=== PATIENT | female | born 1980 | race Caucasian/White ===

== ENCOUNTER 2024-01-22 08:46 | Outpatient (CLI) | payer OTHER, SELFPAY ==
--- NOTE | 2024-01-22 09:06 | ECG_ITS ---
SEE SCANNED COPY FOR CONFIRMED REPORT MTDD
[2024-01-22 09:21] LABS: Hematocrit 39.4 % (37.0-47.0); Hemoglobin 13.2 g/dL (12.0-15.0)
== END 2024-01-22 08:47 | disposition home or self-care (01) ==
LOC: ANHSURGERY 08:57
PROVIDERS: Anesthesiology; Visit Provider Surgery Plastic and Reconstructive Surgery
DX: Z01.818 Encounter for other preprocedural examination (principal)
CPT/HCPCS: 36415; 85014; 85018; 93005

== ENCOUNTER 2024-01-23 00:32 | Day surgery (SDC) | payer OTHER, SELFPAY ==
[2024-01-14 11:41] VITALS: BMI 23.5
--- NOTE | 2024-01-14 11:47 | PC.NURSE ---
Report to the Outpatient Waiting Room, entrance under the green pavilion located off [facility], at time 6:00 on date 01/23/24. Planned Procedure Time: 7:30. Time changes happen often and if your time is changed the preop area will call you the afternoon before. - You and your visitor will be asked to self-screen and do not enter if you have any COVID symptoms. - A mask is optional within the hospital at this time. Patients may have clear liquids (water, carbonated beverages, clear teas, apple juice) until 3 hours prior to surgery (4:30) with a maximum of 20 ounces. - No food from midnight until time of surgery Take the following medications with a SIP of water the morning of surgery: NONE DO NOT STOP ANY OF YOUR OTHER PRESCRIPTION MEDICATIONS PRIOR TO SURGERY ?EXCEPT THE FOLLOWING Medications to discontinue per physician: VITAMINS/SUPPLEMENTS Date to take last dose: PT HAS ALREADY STOPPED Please no make-up, nail romansh, hairspray, perfume, deodorant, or body powder the day of surgery. No jewelry (including any body piercings) or valuables the day of surgery, leave them at home. Please take a shower or bath the night before, or the morning of, surgery with an antibacterial soap. Wear comfortable, loose fitting clothing. - Jewelry must be removed prior to entering the operating room. Rings and piercings that are not removed may be cut off. - The hospital will not accept responsibility for valuables. - Please leave all valuables, including medications, at home the day of surgery. If you are going home after surgery, a licensed commercial driver must drive you home. - NO public transportation without another adult if you receive anesthesia. - We recommend that an adult stay with you for 24 hours following discharge. - We also recommend that you do not drive, make important decision, drink alcoholic beverages, or take any drugs that were not prescribed by your health care provider for at least 24 hours after your discharge time. Follow any additional instructions given to you from your surgeon. If you or anyone in your household have experienced Covid symptoms in the past week, please notify your surgeon or the nurse liaison at the phone number below for possible testing. Telephone instructions given to PT - MAMIE and asked if any additional questions and then verbalized understanding. Patient advised to call surgeon office or pre surgery nurse liaison [phone] if any additional questions.
[2024-01-23] VITALS (11 sets, daily range): BP systolic 94–120; BP diastolic 54–80; PULSE 64–79; RESP 12–16; TEMP 35.8–36.2; O2SAT 99–100
[2024-01-23 06:39] LABS: Urine Cotinine NEGATIVE
--- NOTE | 2024-01-23 07:16 | WPDANESEPPF ---
Anes - Initial Pre Proc Eval Procedure: Operation Date: 01/23/24 07:30 Proposed Procedures p Belt Lipectomy with Liposuction, - Blaise Zapata MD s Bilateral Breast Mastopexy with GalaFlex, - MD chon Wang Bilateral Breast Augmentation - Blaise Zapata MD Date/Time: 01/23/24 07:16 Surgeon: Blaise Zapata MD Pre Op Diagnosis: skin laxity, breastosis and micromastia Patient Data Age: 43 Gender: F Height: 1.7 m Weight: 68.05 kg Allergies Allergy/AdvReac Type Severity Reaction Status Date / Time No Known Allergies Allergy Verified 01/23/24 07:17 Home Medications Medication Instructions Recorded Confirmed Type biotin 1,000 mcg chewable tablet 1,000 mcg PO DAILY 01/14/24 01/14/24 History magnesium 250 mg tablet 250 mg PO DAILY 01/14/24 01/23/24 History celecoxib 200 mg capsule 200 mg PO BID 01/23/24 01/23/24 History Laboratory Tests 01/23/24 06:07 Cotinine Negative Patient hx anesthesia problems: none Family hx anesthesia problems: none Results Review: All pre-operative results and documents have been reviewed as part of the pre-operative evaluation. [facility] Social History Social History Years smoked: 5 Smoking status: Former smoker Tobacco type: cigarettes and e-cigarettes/vaping Smoking end date: 10/06/09 Additional smoking assessment comments: QUIT VAPING 09/30/23 Alcohol intake: current Alcohol use details: 5/MONTH Substance use: never Substance use type: does not use Living arrangements: with family Additional living arrangements comments: DAUGHTER Spiritual care concerns: No Anes - Eval Final PreProcedure Day of Procedure 01/23/24 07:16 Patient weight: normal Heart: regular rate and rhythm Lungs: clear to auscultation Airway: Mallampati scale class II Neurological: alert and oriented Last oral intake: >/= 8 hours ASA classification: II Emergent: no Anesthetic plan: proceed Anesthesia type and monitoring: general ETT and standard monitoring Results Review: All pre-operative results and documents have been reviewed as part of the pre-operative evaluation. Informed Consent: The patient's anesthetic plan and its attendant risks and benefits were discussed with the patient/family/POA. Questions were solicited and answers provided to the satisfaction of the patient/family/POA.
--- NOTE | 2024-01-23 07:25 | P.OP_ITS ---
Procedure Note - Detailed Date of Procedure 01/23/24 Pre-op Diagnosis skin laxity, breastosis and micromastia Post-op Diagnosis Same Procedure Performed 1. Bilateral augmentation mastopexy with Galaflex 2. Progressive tension abdominoplasty with suction lipectomy Surgeon Blaise Zapata MD Anesthesia General Findings Bilateral Natrelle SoftTouch implants 485cc Right - REF# [id number] SN [id number] Left - REF# [id number] SN [id number] Lipoaspirate: 1000 cc Tissue removed: 1838 grams Description of Procedure They are here today for the above procedures. Previously and again today the risks, benefits, alternatives were discussed in extensive detail. I wanted them to be very realistic about the risks involved as well as expectations. We discussed aftercare and what to monitor for. I was very upfront about the risks of wound breakdown leading to loss of skin, open wounds, and need for additional procedures with permanent abdominal deformity. We discussed DVT/PE risks and management. Made sure answered all of their questions to their satisfaction today and consent was obtained. They were marked in the preoperative holding area with their verification. The patient was taken to the operating room. Anesthesia was provided by anesthesiology. A Macias catheter was started. Posterior Placed prone on the operating room table with care taken to protect from injury. Prepped and draped in a standard sterile fashion. A surgical time-out was taken. Stab incisions were made and tumescent solution was infiltrated. Once adequate time was allowed for hemostasis a 5mm basket and 3mm multi hole cannula were utilized to complete suction lipectomy based on S.A.F.E. technique in multiple planes and passes. Suction lipectomy continued to result based on pre-operative planning, intra-operative observation, and rolling pinch test which were in full agreement. A 10 blade was used to make the upper incision and dissection was continued inferior elevating what we necessary for closure. I placed patient in slight jackknife position and excised intervening tissue. This was closed with 3 point suture with 2-0 Vicryl followed 2-0 PDO strattafix, 3-0 stratafix ,running subcuticular 4-0 Monocryl, and tissue glue. Laterally saba were placed for turning. Patient was then placed supine with care taken to protect from injury. Breast Marked in the preoperative holding area with their verification. The patient was taken to the operating room placed supine on the operating table. Anesthesia was provided by anesthesiology. A surgical time-out was taken. We cleansed the skin and 1% lidocaine and 0.25% Marcaine with epinephrine was used anesthetize as a field block. She was prepped and draped in a standard sterile fashion. Tegaderm nipple Scott were placed. A 15 blade used to make an incision just superior to the inframammary fold leaving a cusp of de-epithelized tissue at the t junction. Dissection was continued until the chest wall as identified. I incised the pectoralis major along its inferior border and completely released the inferior border leaving the medial border intact. I created a subpectoral pocket in the appropriate dimensions based on our preoperative planning for the implant. I then copiously irrigated with saline solution and verified a strict hemostasis. Next the use a triple antibiotic and Betadine containing solution to irrigate the pocket. I washed my gloves with the triple antibiotic and Betadine solution. We washed the implant immediately upon opening it with this solution and only opened it when we needed it. I used implant funnel and no-touch technique. The implant was introduced into the pocket using the funnel. Having verified positioning of the implant this was closed using 2-0 PDS. I tailor tacked the breast into position. Placed her in a sitting position. Verified the nipple-areolar location based on preoperative planning as well as intraoperative observations and measurements in full agreement. She was placed supine. I de-epithelialized the pedicle. I then removed the inferior central portion of the breast need making sure the implant was well protected. I elevated medial and lateral tissue flaps as well for planned closure. Galaflex was soaking on the back table in a betadine solution. Trimmed and sutured in place with 2-0 Vicryl. I closed along the IMF with 2-0 Stratafix. Along the vertical with 2-0 PDS. I closed around the areola with 3-0 strata fix. 3-0 Monocryl along the vertical. 3-0 Stratafix along the IMF. I finally closed everything with running subcuticular 4-0 Monocryl and tissue glue. Abdomen I placed the patient in a flexed position to verify the upper and lower markings would reach. I then placed supine. A thorough abdominal examination was comp leted. Stab incisions were made and tumescent solution infiltrated. Stab incisions were made and tumescent solution was infiltrated. Once adequate time was allowed for hemostasis a 5mm basket and 3mm multi hole cannula were utilized to complete suction lipectomy based on S.A.F.E. technique in multiple planes and passes. Suction lipectomy continued to result based on pre-operative planning, intra-operative observation, and rolling pinch test which were in full agreement. A 10 blade was used to make the upper incision. I continued dissection down to the level of fascia. Elevated just what was necessary for repair of the diastasis. I then again flexed the bed to verify the upper skin flap would reach the lower markings without tension. Once verified I placed her supine once again and a 10 blade used to make the lower incision. I elevated up to level the umbilicus and left the umbilicus intact on a well-vascularized stalk. The intervening tissue was removed. A 2 mm blunt cannula with 0.5% bupivacaine was injected deep to the fascia bilaterally. I plicated the diastasis recti using 0 PDO Stratafix barbed suture. This was in 2 separate layers using 2 separate sutures as well. After the patient was flexed (below) plicated the fascia with 0 PDO Stratafix in two separate layers. The patient was flexed and starting from superior to inferior began plication using 2-0 Vicryl to obliterate all space in a standard progressive tension fashion. At the umbilicus I marked out the location of the skin and inset this with 3-0 Monocryl and 4-0 Vicryl. I continued the remainder of the plication using 2-0 Vicryl until I reached my lower planned scar line. I trimmed any excess skin of the upper flap making sure this was a tension-free closure. 15 Luis Carlos drain was placed. I then approximated using a 3 point suture with 2-0 Vicryl followed by 2-0 PDO Stratafix, 3-0 Stratafix ,running subcuticular 4-0 Monocryl, and tissue glue. Fluffs, abdominal binder, and surgical bra were placed. The patient was transferred to the bed in a flexed position. [place] and taken to the PACU without difficulty. All instrument and sponge counts were correct at the end of the case. Estimated Blood Loss 100 Drains Yes (15 luis carlos) Packing No Pathology None sent Complications No immediate complications Condition Stable Disposition PACU
--- NOTE | 2024-01-23 07:25 | WPDHPUPDATE1 ---
History and Physical Update Update Date/Time: 01/23/24 07:25 History and Physical has been reviewed, including an updated exam of the patient. There are NO changes in the patient's condition. Risks, benefits, and alternatives have been discussed and questions answered. Patient agrees to proceed with procedure.
[2024-01-23] MEDS: LACTATED RINGERS 1,000 ML 30 ML IV CONT ×2 (07:36→14:38)
[2024-01-23] MEDS: BUPIVACAINE/EPINEPHRINE 0.5% 30 ML VIAL 60 ML INFILTRATE (07:37)
[2024-01-23] MEDS: NACL 0.9% IRRIG POUR BOTTLE 900 ML, GENTAMICIN SULFATE INJ 160 MG, ceFAZolin 2 GM, POVI... IRRIGATION (07:37)
[2024-01-23] MEDS: ceFAZolin 2 GM/D5W 50 ML 2 GM/50 ML BAG IVPB (07:37)
[2024-01-23] MEDS: LACTATED RINGERS IRRIG 1,000 ML, LIDOCAINE HCL 1% LOCAL INJ 50 ML, EPINEPHrine HCL INJ ... INFILTRATE (07:37)
[2024-01-23] MEDS: SCOPOLAMINE 1 MG PATCH 1 PATCH TRANSDERM (07:50)
[2024-01-23] MEDS: TRANEXAMIC ACID 1,000MG/ISO100 1,000 MG/100 ML BAG 200 MG IVPB (07:53)
[2024-01-23] MEDS: ceFAZolin SODIUM 1 GM VIAL 2 GM IV PUSH (11:37)
[2024-01-23] MEDS: fentaNYL CITRATE INJ (*CRX) 100 MCG/2 ML VIAL 25 MCG IV PUSH ×7 (15:19→16:47)
[2024-01-23] MEDS: oxyCODONE HCL (*CRX) 5 MG TAB IR PO (16:42)
--- NOTE | 2024-02-06 07:12 | PM.IMHP ---
H&P: HPI History of Present Illness Date/Time: 01/23/2024 07:12 Chief Complaint: Desire for breast augmentation and abdominoplasty Narrative: Here today for bilateral augmentation mastopexy with Galaflex and progressive tension abdominoplasty with suction lipectomy Review of Systems Review of Systems: All systems reviewed & are unremarkable except as noted in HPI and below [facility] Social History Social History Years smoked: 5 Smoking status: Former smoker Tobacco type: cigarettes and e-cigarettes/vaping Smoking end date: 10/06/09 Additional smoking assessment comments: QUIT VAPING 09/30/23 Alcohol intake: current Alcohol use details: 5/MONTH Substance use: never Substance use type: does not use Living arrangements: with family Additional living arrangements comments: DAUGHTER Spiritual care concerns: No Meds Home Medications and Allergies Home Medications Medication Instructions Recorded Confirmed Type biotin 1,000 mcg chewable tablet 1,000 mcg PO DAILY 01/14/24 01/14/24 History magnesium 250 mg tablet 250 mg PO DAILY 01/14/24 01/23/24 History celecoxib 200 mg capsule 200 mg PO BID 01/23/24 01/23/24 History Allergies Allergy/AdvReac Type Severity Reaction Status Date / Time No Known Allergies Allergy Verified 01/23/24 07:17 Exam Narrative: Alert & Oriented NOD Respiratory unlabored Assessment and Plan Assessment and plan (1) Encounter for cosmetic surgery: Code(s): Z41.1 - Encounter for cosmetic surgery Status: Acute Assessment and Plan: Would like to proceed with bilateral augmentation mastopexy with Galaflex and progressive tension abdominoplasty with suction lipectomy. Risks, benefits, alternatives were discussed in extensive detail. I want to be very realistic about the risks involved as well as expectations. Reviewed consent in detail. Discussed aftercare and what to monitor for. Made sure I answered all questions answered to satisfaction and consent obtained.
== END 2024-01-23 17:30 | disposition home or self-care (01) ==
PROVIDERS: Visit Provider Surgery Plastic and Reconstructive Surgery
PROC: (CPT 15830; principal; 2024-01-23 07:30)
PROC: (CPT 19316; 2024-01-23 07:30)
PROC: (CPT 19325; 2024-01-23 07:30)
DX: Z41.1 Encounter for cosmetic surgery (principal); N64.82 Hypoplasia of breast; L57.4 Cutis laxa senilis; Z87.891 Personal history of nicotine dependence
CPT/HCPCS: 19325; 19316; 15777 ×2; 15877; 15830; 15847; 80307; A9270; J0171; J0690; J1170; J1580; J2250; J3010; J7120